=== PATIENT | male | born 1965 | race Caucasian/White ===

== ENCOUNTER 2022-12-21 13:00 | Outpatient (CLI) | payer BC | END 2022-12-21 13:01 | disposition home or self-care (01) | LOC: CSHMRI 13:00 | PROVIDERS: ATTEND Orthopaedic Surgery | DX: M23.91 Unspecified internal derangement of right knee (principal); S83.241A Other tear of medial meniscus, current injury, right knee, initial encounter; S83.231A Complex tear of medial meniscus, current injury, right knee, initial encounter; S83.411A Sprain of medial collateral ligament of right knee, initial encounter; M79.89 Other specified soft tissue disorders; M25.461 Effusion, right knee ==